=== PATIENT | female | born 1995 | race Caucasian/White ===

== ENCOUNTER 2019-02-13 15:22 | Outpatient (CLI) | payer OTHER ==
[2019-02-13] MEDS ORDERED: OMNIPAQUE 350 MG/ML, 150 ML BOTTLE ONE (16:17)
== END 2019-02-13 23:59 | disposition home or self-care (01) ==
LOC: CFH 15:22
PROVIDERS: ATTEND Nurse Practitioner Gerontology
DX: R31.0 Gross hematuria (principal)
CPT/HCPCS: 74178; Q9967